=== PATIENT | male | born 1985 | race African-American/Black ===

== ENCOUNTER 2017-01-24 23:26 | Emergency (ER) | payer OTHER ==
[2017-01-25] MEDS ORDERED: MORPHINE SULFATE IR 30 MG TABLET PO ONE (01:37)
[2017-01-25] MEDS ORDERED: IBUPROFEN 600 MG TABLET PO ONE (01:37)
[2017-01-25] MEDS ORDERED: LIDOCAINE 5% (700 MG) TRANSDERMAL ADH..PATCH TP ONE (01:37)
[2017-01-25] MEDS ORDERED: HYDROCODONE/ACETAMINOPHEN 5-325 MG 6 TAB/DSPK PO PRN (01:39)
--- NOTE | 2017-01-25 01:39 | ER Document Report ---
ED General - General Chief Complaint: Neck and Upper Back Pain Stated Complaint: NECK AND SHOULDER PAIN Time Seen by Provider: 01/25/17 00:57 Notes: Patient is a 31-year-old male without past medical history who presents with 1 week of left shoulder, neck and trapezius pain. Patient describes this pain as a constant, dull, aching pain. It is worsened by moving the left shoulder. He has tried ibuprofen and heating the area with minimal improvement of the pain. He is uncertain of what injury could have triggered this pain. No history of similar symptoms in the past. He has not seen his primary care doctor regarding today's concerns. He denies any associated weakness, numbness, discoloration of the extremity. Denies any headache, altered mental status or fever. TRAVEL OUTSIDE OF THE [place] IN LAST 30 DAYS: No - Related Data Allergies/Adverse Reactions: Penicillins Allergy (Verified 03/29/16 19:04) Past Medical History - General Information source: Patient - Social History Smoking Status: Current Every Day Smoker Chew tobacco use (# tins/day): No Frequency of alcohol use: None Drug Abuse: Marijuana Lives with: Spouse/Significant other Family History: Reviewed & Not Pertinent Patient has suicidal ideation: No Patient has homicidal ideation: No Neurological Medical History: Reports: Hx Migraine Renal/ Medical History: Denies: Hx Peritoneal Dialysis - Immunizations Hx Diphtheria, Pertussis, Tetanus Vaccination: Yes - 2010 Review of Systems - Review of Systems Notes: Constitutional: Negative for fever. HENT: Negative for sore throat. Eyes: Negative for visual changes. Cardiovascular: Negative for chest pain. Respiratory: Negative for shortness of breath. Gastrointestinal: Negative for abdominal pain, vomiting or diarrhea. Genitourinary: Negative for dysuria. Musculoskeletal: Negative for back pain. Positive for right shoulder pain and neck pain Skin: Negative for rash. Neurological: Negative for headaches, weakness or numbness. 10 point ROS negative except as marked above and in HPI. Physical Exam - Vital signs Vitals: Temp Pulse Resp BP Pulse Ox 97.6 F 72 18 113/77 98 01/25/17 00:06 01/25/17 00:06 01/25/17 00:06 01/25/17 00:06 01/25/17 00:06 Interpretation: Normal Notes: PHYSICAL EXAMINATION: GENERAL: Well-appearing, well-nourished and in no acute distress. HEAD: Atraumatic, normocephalic. EYES: Pupils equal round and reactive to light, extraocular movements intact, sclera anicteric, conjunctiva are normal. ENT: nares patent, oropharynx clear without exudates. Moist mucous membranes. NECK: Normal range of motion, supple without lymphadenopathy LUNGS: Breath sounds clear to auscultation bilaterally and equal. No wheezes rales or rhonchi. HEART: Regular rate and rhythm without murmurs ABDOMEN: Soft, nontender, normoactive bowel sounds. No guarding, no rebound. No masses appreciated. EXTREMITIES: Normal range of motion, no pitting or edema. No cyanosis. Pain on palpation of the left sternocleidomastoid, trapezius and the entire left shoulder. NEUROLOGICAL: No focal neurological deficits. Moves all extremities spontaneously and on command. RMU sensory distribution intact in the left upper extremity PSYCH: Normal mood, normal affect. SKIN: Warm, Dry, normal turgor, no rashes or lesions noted. Course - Re-evaluation Re-evalutation: 01/25/17 01:37 No evidence of a septic joint, gout flare, dislocation, or fracture on exam. No neurologic deficit present on exam. The patient does have pain over the sternocleidomastoid, trapezius and the entirety of the left shoulder on palpation on exam consistent with a musculoskeletal strain. Vitals wnl. At this time, I do not see an indication for labs or further imaging. Will discharge with conservative measures, return precautions, and follow-up recommendations. - Vital Signs Vital signs: Temp Pulse Resp BP Pulse Ox 97.6 F 74 17 117/79 99 01/25/17 00:06 01/25/17 02:05 01/25/17 02:05 01/25/17 02:05 01/25/17 02:05 Discharge - Discharge Clinical Impression: Musculoskeletal strain Left shoulder pain Qualifiers: Chronicity: acute Qualified Code(s): M25.512 - Pain in left shoulder Condition: Good Disposition: HOME, SELF-CARE Additional Instructions: Your symptoms are related to a strain of your shoulder and neck muscles. You should continue to take anti-inflammatories such as ibuprofen 600 mg every 6 hours. Continue to apply ice to the area is much your able. Please follow-up with your primary care physician if you do not have improving your symptoms in the next 1-2 weeks. Please return immediately if you develop weakness, numbness , spreading redness from the area, or any other symptoms that are concerning to you. Forms: Return to Work
[2017-01-25] MEDS ORDERED: MORPHINE SULFATE IR 30 MG TABLET ONE (02:02)
[2017-01-25 02:07] VITALS: BP 117/79
== END 2017-01-25 02:05 | disposition home or self-care (01) ==
LOC: ER 23:26
DX: S46.912A Strain of unspecified muscle, fascia and tendon at shoulder and upper arm level, left arm, initial encounter (principal); M54.2 Cervicalgia; M54.6 Pain in thoracic spine; M25.512 Pain in left shoulder; F17.200 Nicotine dependence, unspecified, uncomplicated; X58.XXXA Exposure to other specified factors, initial encounter
CPT/HCPCS: 99283

== ENCOUNTER 2017-05-08 22:39 | Emergency (ER) | payer OTHER ==
[2017-05-09] MEDS ORDERED: CLINDAMYCIN HCL 150 MG CAPSULE PO ONE (01:42)
[2017-05-09] MEDS ORDERED: TRAMADOL HCL 50 MG TABLET PO ONE (01:42)
--- NOTE | 2017-05-09 01:44 | ER Document Report ---
ED General - General Chief Complaint: Toothache Stated Complaint: TOOTHACHE Time Seen by Provider: 05/09/17 01:27 Notes: Patient is a 32-year-old male who presents with complaint of toothache. He has 2 fractured teeth over the right lower mandible. No gingival swelling. No fevers. No difficulty breathing. Patient has appointment with a dentist on . He is currently not on antibiotics. Is allergic to penicillin. No other complaints at this time. TRAVEL OUTSIDE OF THE [place] IN LAST 30 DAYS: No - Related Data Allergies/Adverse Reactions: Penicillins Allergy (Verified 03/29/16 19:04) Past Medical History - Social History Smoking Status: Unknown if Ever Smoked Frequency of alcohol use: None Drug Abuse: None Family History: Reviewed & Not Pertinent Neurological Medical History: Reports: Hx Migraine Renal/ Medical History: Denies: Hx Peritoneal Dialysis - Immunizations Hx Diphtheria, Pertussis, Tetanus Vaccination: Yes - 2010 Review of Systems - Review of Systems Notes: My Normal Review Basic REVIEW OF SYSTEMS: CONSTITUTIONAL : Denies fever, chills, or sweats. Denies recent illness. EENT: Toothache. CARDIOVASCULAR: Denies chest pain. RESPIRATORY: Denies cough, cold, or chest congestion. Denies shortness of breath, difficulty breathing, or wheezing. GASTROINTESTINAL: Denies abdominal pain. Denies nausea, vomiting, or diarrhea. Denies constipation. Last BM: MUSCULOSKELETAL: Denies neck or back pain or joint pain or swelling. SKIN: Denies rash or skin lesions. NEUROLOGICAL: Denies altered mental status or loss of consciousness. Denies headache. Denies weakness or paralysis or loss of use of either side. Denies problems with gait or speech. Denies sensory or motor loss. ALL OTHER SYSTEMS REVIEWED AND NEGATIVE. Physical Exam - Vital signs Vitals: Temp Pulse Resp BP Pulse Ox 98.5 F 64 18 117/77 99 05/08/17 23:37 05/08/17 23:37 05/08/17 23:37 05/08/17 23:37 05/08/17 23:37 - Notes Notes: General Appearance: Well nourished, alert, cooperative, no acute distress, moderate obvious discomfort. Vitals: reviewed, See vital signs table. Head: no swelling or tenderness to the head. No facial swelling. Eyes: PERRL, EOMI, Conjuctiva clear Mouth: Fractured molar and premolar over the right lower jaw. Throat: No tonsillar inflammation, No airway obstruction, No lymphadenopathy Neck: Supple, no neck tenderness, Lungs: No wheezing, No rales, No rhonci, No accessory muscle use, good air exchange bilaterally. Heart: Normal rate, Regular rythm, No murmur, no rub Abdomen: Normal BS, soft, No rigidity, No abdominal tenderness, No guarding, no rebound, no abdominal masses, no organomegaly Extremities: strength 5/5 in all extremities, good pulses in all extremities, no swelling or tenderness in the extremities, no edema. Skin: warm, dry, appropriate color, no rash Neuro: speech clear, oriented x 3, normal affect, responds appropriately to questions. Course - Re-evaluation Re-evalutation: 05/09/17 02:21 Patient has 2 fractured teeth of her right lower jaw. I will place him on clindamycin and give him a short prescription for some stronger pain medicine for at night. I encouraged him to keep his appointment with a dentist. Encouraged him return to ER if he has worsening of symptoms or feels unwell. Patient agrees with plan will be discharged home. Dictation of this chart was performed using voice recognition software; therefore, there may be some unintended grammatical errors. - Vital Signs Vital signs: Temp Pulse Resp BP Pulse Ox 98.5 F 64 18 117/77 99 05/08/17 23:37 05/08/17 23:37 05/08/17 23:37 05/08/17 23:37 05/08/17 23:37 Discharge - Discharge Clinical Impression: Toothache Condition: Good Disposition: HOME, SELF-CARE Instructions: Clindamycin ([facility]), Oral Narcotic Medication ([facility]), Toothache ([facility] ) Additional Instructions: [place] return to the ER immediately if you have fevers, facial swelling, difficulty breathing, or difficulty swallowing. Prescriptions: Tramadol HCl [Ultram 50 mg Tablet] 50 mg PO Q6HP PRN #10 tablet PRN Reason: Clindamycin HCl 300 mg PO ASDIR #56 capsule
[2017-05-09 02:42] VITALS: BP 115/70
== END 2017-05-09 02:39 | disposition home or self-care (01) ==
LOC: ER 22:39
DX: K08.9 Disorder of teeth and supporting structures, unspecified (principal); Z88.0 Allergy status to penicillin
CPT/HCPCS: 99282

== ENCOUNTER 2017-07-29 21:45 | Emergency (ER) | payer OTHER ==
[2017-07-30] MEDS ORDERED: CEPHALEXIN 500 MG CAPSULE PO ONE (00:24)
[2017-07-30] MEDS ORDERED: OXYCODONE-ACETAMINOPHEN 5-325 MG TABLET PO ONE (00:24)
--- NOTE | 2017-07-30 00:31 | ER Document Report ---
ED General - General Chief Complaint: Facial Injury Stated Complaint: FACE PAIN Time Seen by Provider: 07/29/17 23:47 Mode of Arrival: Ambulatory Information source: Patient Notes: 32 yr old male presents with complaints of left lower jaw pain and swelling. pt notes that he struck himself i nthe face with a broomstick yesterday and the swelling started today with pain denies any fevers or chills. TRAVEL OUTSIDE OF THE [place] IN LAST 30 DAYS: No - HPI Onset: Yesterday Onset/Duration: Sudden Quality of pain: Achy Severity: Moderate Pain Level: 3 Associated symptoms: Other Exacerbated by: Denies Relieved by: Denies Similar symptoms previously: No Recently seen / treated by doctor: No - Related Data Allergies/Adverse Reactions: Penicillins Allergy (Verified 03/29/16 19:04) Past Medical History - Social History Smoking Status: Never Smoker Cigarette use (# per day): No Chew tobacco use (# tins/day): No Smoking Education Provided: No Family History: Reviewed & Not Pertinent Patient has suicidal ideation: No Patient has homicidal ideation: No Neurological Medical History: Reports: Hx Migraine Renal/ Medical History: Denies: Hx Peritoneal Dialysis - Immunizations Hx Diphtheria, Pertussis, Tetanus Vaccination: Yes - 2010 Review of Systems - Review of Systems Notes: REVIEW OF SYSTEMS: CONSTITUTIONAL : Denies fever, chills, or sweats. Denies recent illness. EENT: left facial pain and swelling CARDIOVASCULAR: Denies chest pain. Denies palpitations or racing or irregular heart beat. Denies ankle edema. RESPIRATORY: Denies cough, cold, or chest congestion. Denies shortness of breath, difficulty breathing, or wheezing. GASTROINTESTINAL: Denies abdominal pain or distention. Denies nausea, vomiting , or diarrhea. Denies blood in vomitus, stools, or per rectum. Denies black, tarry stools. Denies constipation. GENITOURINARY: Denies difficulty urinating, painful urination, burning, frequency, blood in urine, or discharge. MUSCULOSKELETAL: Denies back or neck pain or stiffness. Denies joint pain or swelling. SKIN: Denies rash, lesions or sores. HEMATOLOGIC : Denies easy bruising or bleeding. LYMPHATIC: Denies swollen, enlarged glands. NEUROLOGICAL: Denies confusion or altered mental status. Denies passing out or loss of consciousness. Denies dizziness or lightheadedness. Denies headache. Denies weakness or paralysis or loss of use of either side. Denies problems with gait or speech. Denies sensory loss, numbness, or tingling. Denies seizures. PSYCHIATRIC: Denies anxiety or stress. Denies depression, suicidal ideation, or homicidal ideation. ALL OTHER SYSTEMS REVIEWED AND NEGATIVE. Dictation was performed using [employer] voice recognition software PHYSICAL EXAMINATION: GENERAL: Well-appearing, well-nourished and in no acute distress. HEAD: Atraumatic, normocephalic. EYES: Pupils equal round and reactive to light, extraocular movements intact, sclera anicteric, conjunctiva are normal. ENT: left lower jaw edema, there is an abscess of the left lower gum with drainage NECK: Normal range of motion, supple without lymphadenopathy LUNGS: Breath sounds clear to auscultation bilaterally and equal. No wheezes rales or rhonchi. HEART: Regular rate and rhythm without murmurs ABDOMEN: Soft, nontender, nondistended abdomen. No guarding, no rebound. No masses appreciated. Musculoskeletal: Normal range of motion, no pitting or edema. No cyanosis. NEUROLOGICAL: Cranial nerves grossly intact. Normal speech, normal gait. Normal sensory, motor exams PSYCH: Normal mood, normal affect. SKIN: Warm, Dry, normal turgor, no rashes or lesions noted. Physical Exam - Vital signs Vitals: Temp Pulse Resp BP Pulse Ox 99.1 F 87 22 H 117/77 98 07/29/17 21:51 07/29/17 21:51 07/29/17 21:51 07/29/17 21:51 07/29/17 21:51 Course - Re-evaluation Re-evalutation: 07/30/17 04:05 I was able to express pus on palpation of the gum. Pt denies any other ocncerns , will treat with antiboitics, i did offer to incise but he wishes ot defer at this time. very strict return precautions provided given concerns for spreading and airway compromise After performing a Medical Screening Examination, I estimate there is LOW risk for a DEEP SPACE INFECTION (e.g., AUGUSTIN'S ANGINA OR RETROPHARYNGEAL ABSCESS), MENINGITIS, INTRACRANIAL HEMORRHAGE, or AIRWAY COMPROMISE, thus I consider the discharge disposition reasonable. Also, there is no evidence or peritonitis, sepsis, or toxicity. I have reevaluated this patient multiple times and no significant life threatening changes are noted. The patient and I have discussed the diagnosis and risks, and we agree with discharging home with close follow-up with the understanding that symptoms and presentations can change. We also discussed returning to the Emergency Department immediately if new or worsening symptoms occur. We have discussed the symptoms which are most concerning (e.g., changing or worsening pain, trouble swallowing or breathing, neck stiffness or fever) that necessitate immediate return. - Vital Signs Vital signs: Temp Pulse Resp BP Pulse Ox 98.2 F 74 16 110/84 97 07/30/17 00:43 07/30/17 00:43 07/30/17 00:43 07/30/17 00:43 07/30/17 00:43 Discharge - Discharge Clinical Impression: Dental abscess, Facial swelling Condition: Stable Disposition: HOME, SELF-CARE Instructions: Abscess ([facility]) Additional Instructions: Please follow-up with dentist in 1 week or return immediately if swelling worsens or there is any other difficulty swallowing or any other concerns Prescriptions: Cephalexin Monohydrate [Keflex 500 mg Capsule] 500 mg PO QID #40 capsule Oxycodone HCl/Acetaminophen [Percocet 5-325 mg Tablet] 1 tab PO ASDIR PRN #15 tab PRN Reason: Forms: Return to Work
[2017-07-30 00:44] VITALS: BP 110/84
== END 2017-07-30 00:44 | disposition home or self-care (01) ==
LOC: ER 21:45
DX: K04.7 Periapical abscess without sinus (principal); Z88.0 Allergy status to penicillin
CPT/HCPCS: 99283

== ENCOUNTER 2018-04-10 13:09 | Emergency (ER) | payer BC, OTHER ==
[2018-04-10] MEDS ORDERED: RINGERS SOLUTION,LACTATED 1,000 ML IV ONE (14:18)
[2018-04-10] MEDS ORDERED: KETOROLAC TROMETHAMINE INJ/PF 30 MG/1 ML SDV IV ONE (14:19)
--- NOTE | 2018-04-10 14:21 | ER Document Report ---
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 Today started having headache nauseous general malaise and general weakness therefore present to the ED. With muscular cramps. Denies any fever chills or other constitutional symptoms Onset: Gradual Duration: Last 2-3 days Severity: Moderate Quality: Crampy Context: Working outside in the hot sun Exacerbating factor and relieving factors: None REVIEW OF SYSTEMS: CONSTITUTIONAL : Denies fever, chills, or sweats. Denies recent illness. EENT: Denies eye, ear, throat, or mouth pain or symptoms. Denies nasal or sinus congestion or discharge. Denies throat, tongue, or mouth swelling or difficulty swallowing. CARDIOVASCULAR: Denies chest pain. Denies palpitations or racing or irregular heart beat. Denies ankle edema. RESPIRATORY: Denies cough, cold, or chest congestion. Denies shortness of breath, difficulty breathing, or wheezing. GASTROINTESTINAL: Denies distention. Denies nausea, vomiting, or diarrhea. Denies blood in vomitus, stools, or per rectum. Denies black, tarry stools. Denies constipation. GENITOURINARY: Denies difficulty urinating, painful urination, burning, frequency, blood in urine, or discharge. FEMALE GENITOURINARY: Denies vaginal bleeding, heavy or abnormal periods, irregular periods. Denies vaginal discharge or odor. MUSCULOSKELETAL: Denies back or neck pain or stiffness. Denies joint pain or swelling. SKIN: Denies rash, lesions or sores. HEMATOLOGIC : Denies easy bruising or bleeding. LYMPHATIC: Denies swollen, enlarged glands. NEUROLOGICAL: Denies confusion or altered mental status. Denies passing out or loss of consciousness. Denies dizziness or lightheadedness. Denies headache. Denies weakness or paralysis or loss of use of either side. Denies problems with gait or speech. Denies sensory loss, numbness, or tingling. Denies seizures. PSYCHIATRIC: Denies anxiety or stress. Denies depression, suicidal ideation, or homicidal ideation. ALL OTHER SYSTEMS REVIEWED AND NEGATIVE. PHYSICAL EXAMINATION: GENERAL: Well-appearing, well-nourished and in no acute distress. HEAD: Atraumatic, normocephalic. EYES: Pupils equal round and reactive to light, extraocular movements intact, conjunctiva are normal. ENT: Nares patent, oropharynx clear without exudates. Moist mucous membranes. NECK: Normal range of motion, supple without lymphadenopathy LUNGS: Breath sounds clear to auscultation bilaterally and equal. No wheezes rales or rhonchi. HEART: Regular rate and rhythm without murmurs ABDOMEN: Soft, nontender, nondistended abdomen. No guarding, no rebound. No masses appreciated. Examination of genitals-deferred Musculoskeletal: Normal range of motion, no pitting or edema. No cyanosis. NEUROLOGICAL: Cranial nerves grossly intact. Normal speech, normal gait. Normal sensory, motor exams PSYCH: Normal mood, normal affect. SKIN: Warm, Dry, normal turgor, no rashes or lesions noted. Dictation was performed using [employer] voice recognition software TRAVEL OUTSIDE OF THE [place] IN LAST 30 DAYS: No - HPI Notes: Dictated - Related Data Allergies/Adverse Reactions: Penicillins Allergy (Verified 04/10/18 13:13) Past Medical History - Social History Smoking Status: Current Every Day Smoker Chew tobacco use (# tins/day): No Frequency of alcohol use: Occasional Drug Abuse: Marijuana Family History: Reviewed & Not Pertinent Patient has suicidal ideation: No Patient has homicidal ideation: No Neurological Medical History: Reports: Hx Migraine Renal/ Medical History: Denies: Hx Peritoneal Dialysis - Immunizations Hx Diphtheria, Pertussis, Tetanus Vaccination: Yes - 2010 Review of Systems - Review of Systems Notes: Dictated Physical Exam - Vital signs Vitals: Temp Pulse Resp BP Pulse Ox 98.8 F 89 18 104/73 95 04/10/18 13:28 04/10/18 13:28 04/10/18 13:28 04/10/18 13:28 04/10/18 13:28 - Notes Notes: Dictated Course - Re-evaluation Re-evalutation: 04/10/18 16:01 He was hydrated well subsequently discharged home - Vital Signs Vital signs: Temp Pulse Resp BP Pulse Ox 98.8 F 89 18 104/73 95 04/10/18 13:28 04/10/18 13:28 04/10/18 13:28 04/10/18 13:28 08/08/18 13:28 - Laboratory Result Diagrams: 04/10/18 14:48 Laboratory results interpreted by me: 04/10/18 14:48 Chloride 97 L BUN 21 H Total Protein 8.3 H Albumin 5.2 H Discharge - Discharge Clinical Impression: Dehydration Condition: Fair Disposition: HOME, SELF-CARE Instructions: Dehydration ([facility])
[2018-04-10 15:24] LABS: ALANINE AMINOTRANSFERASE 25 U/L (21-72); ALBUMIN 5.2 g/dL (3.5-5.0); ALKALINE PHOSPHATASE 45 U/L (38-126); ANION GAP 16 (5-19); ASPARTATE AMINO TRANSFERASE 26 U/L (17-59); BILIRUBIN,DIRECT 0.2 mg/dL (0.0-0.4); BLOOD UREA NITROGEN 21 mg/dL (7-20); CALCIUM 9.9 mg/dL (8.4-10.2); CARBON DIOXIDE 29 mmol/L (22-30); CHLORIDE 97 mmol/L (98-107); GLUCOSE 94 mg/dL (75-110); POTASSIUM 4.3 mmol/L (3.6-5.0); SODIUM 141.7 mmol/L (137-145); TOTAL PROTEIN 8.3 g/dL (6.3-8.2)
[2018-04-10 16:12] VITALS: BP 109/87
== END 2018-04-10 16:12 | disposition home or self-care (01) ==
LOC: ER 13:09
DX: E86.0 Dehydration (principal); R51 Headache; R11.0 Nausea; R53.81 Other malaise; R53.1 Weakness; R25.2 Cramp and spasm; F17.200 Nicotine dependence, unspecified, uncomplicated; Z88.0 Allergy status to penicillin
CPT/HCPCS: 99284; 96361; 96374; 36415; 80053; J1885; J7120